=== PATIENT | female | born 1975 | race Two or more races ===

== ENCOUNTER 2024-04-22 08:03 | Outpatient (CLI) | payer OTHER | END 2024-04-22 08:11 | disposition home or self-care (01) | LOC: SONOGRAMA 08:03 | DX: R10.13 Epigastric pain (principal) ==

== ENCOUNTER 2025-02-25 19:04 | Emergency (ER) | payer OTHER ==
[~2025-02-25] VITALS: Ht 167.6 cm; Wt 78.0 kg
[2025-02-25] MEDS ORDERED: IPRATROPIUM BROMIDE 0.5 MG/2.5 ML AMPUL.NEB IH SCH (20:45)
[2025-02-25] MEDS ORDERED: DEXAMETHASONE SODIUM PHOSP/PF 10 MG/ML VIAL IV ONE (20:45)
[2025-02-25] MEDS ORDERED: BENZONATATE 100 MG CAPSULE PO ONE (20:45)
[2025-02-25] MEDS ORDERED: DEXAMETHASONE SODIUM PHOSPHATE 4 MG/ML VIAL ONE (23:54)
[2025-02-26] MEDS ORDERED: IPRATROPIUM BROMIDE 0.5 MG/2.5 ML AMPUL.NEB IH ONE (00:32)
[2025-02-26 00:58] LABS: BASO % 1.0 % (0.1-1.2); EOS # 0.13 (0.04-0.54); EOS % 1.6 % (0.7-7.0); LYMPH # 2.40 (1.18-3.74); LYMPH % 29.9 % (19.3-53.1); MEAN PLATELET VOLUME 9.90 fl (9.4-12.4); MONO # 0.82 (0.24-0.82); MONO % 10.2 % (4.7-12.5); NEUT # 4.57 (1.56-6.13); NEUT % 57.1 % (34.0-71.1); RED CELL DISTRIBUTION WIDTH 12.4 % (11.6-14.4)
[2025-02-26 01:11] LABS: ALT/SGPT 81.0 U/L (12-78); AST/SGOT 33.0 U/L (15-37); BILIRUBIN TOTAL 0.47 mg/dL (0.3-1.2); BUN CREA RATIO 20.0 (7.0-25.0); CREATININE SERUM 0.54 mg/dL (0.55-1.02); GFR 121.01; GLOBULINA 3.5 G/DL (2.4-3.5); GLUCOSE FASTING 93.0 mg/dL (65-100); OSMOLALITY SERUM 278.0 MOSM/KG (275-295)
[2025-02-26 01:24] LABS: COVID-19 AG NEGATIVE (NEGATIVE)
[2025-02-26] MEDS ORDERED: IPRATROPIU0.2 MG/1 M IH (03:20)
[2025-02-26] MEDS ORDERED: BENZONATATE200 M1 PO (03:21)
== END 2025-02-26 03:28 | disposition home or self-care (01) ==
LOC: ER 19:04
PROVIDERS: General Practice
DX: J40 Bronchitis, not specified as acute or chronic (principal); Z20.822 Contact with and (suspected) exposure to COVID-19; Z88.6 Allergy status to analgesic agent; Z88.8 Allergy status to other drugs, medicaments and biological substances; Z87.09 Personal history of other diseases of the respiratory system